=== PATIENT | male | born 1930 | race Caucasian/White ===

== ENCOUNTER 2016-10-18 09:19 | Day surgery (SDC) | payer MEDICARE, OTHER ==
[~2016-10-18] VITALS: Ht 172.7 cm; Wt 66.0 kg
[2016-10-18 10:11] VITALS: BP 229/77; PULSE 49; RESP 18; TEMP 97.7; O2SAT 100
[2016-10-18 10:20] LABS: AUTOMATED NEUTROPHIL # 4.4 TH/MM3 (1.8-7.7); BASOPHIL % 0.4 % (0.0-2.0); EOSINOPHIL # 0.3 TH/MM3 (0-0.4); EOSINOPHIL % 3.6 % (0.0-4.0); HEMATOCRIT 41.6 % (39.0-51.0); HEMO FLAGS DIFF FINAL; LYMPH % 25.4 % (9.0-44.0); LYMPHOCYTE # 1.8 TH/MM3 (1.0-4.8); MEAN CORPUSCULAR HEMOGLOBIN 30.5 PG (27.0-34.0); MEAN CORPUSCULAR HGB CONC 33.1 % (32.0-36.0); MONO % 9.5 % (0.0-8.0); NEUT % 61.1 % (16.0-70.0); PLATELET COUNT 257 TH/MM3 (150-450); RED BLOOD COUNT 4.52 MIL/MM3 (4.50-5.90); RED CELL DISTRIBUTION WIDTH 17.4 % (11.6-17.2); WHITE BLOOD COUNT 7.2 TH/MM3 (4.0-11.0)
[2016-10-18] MEDS ORDERED: HYDR-3516 PO (10:29)
[2016-10-18] MEDS ORDERED: LABE200T2 PO (10:29)
[2016-10-18] MEDS ORDERED: CLON.1 PO (10:29)
[2016-10-18] MEDS ORDERED: MAGN400T2 PO (10:29)
[2016-10-18] MEDS ORDERED: SENO8.6T5 PO (10:29)
[2016-10-18] MEDS ORDERED: CELE20TA PO (10:29)
[2016-10-18] MEDS ORDERED: LEVO.05 PO (10:29)
[2016-10-18] MEDS ORDERED: ASPI81TA11 PO (10:29)
[2016-10-18 10:48] LABS: POTASSIUM 4.2 MEQ/L (3.5-5.1)
[2016-10-18] MEDS ORDERED: HEPARIN SODIUM - IV 10,000 UNITS/10 ML VIAL ONE (11:39)
[2016-10-18] MEDS ORDERED: MIDAZOLAM HCL 5 MG/ML VIAL (1 ML) ONE (11:39)
[2016-10-18] MEDS ORDERED: hydrALAZINE HCL 20 MG/ML VIAL ONE ×2 (12:36→13:17)
[2016-10-18] MEDS ORDERED: PROTAMINE SULFATE 50 MG/5 ML VIAL ONE (12:59)
[2016-10-18] MEDS ORDERED: IOHEXOL IV ONE (13:50)
[2016-10-18] MEDS ORDERED: CLOPIDOGREL 300 MG TAB ONE (14:03)
[2016-10-18] MEDS ORDERED: cloNIDine HCL 0.1 MG TAB PO ONE (14:45)
[2016-10-18] MEDS ORDERED: ACETAMINOPHEN/HYDROcodone 325 MG/5 MG TAB PO PRN (14:45)
--- NOTE | 2016-10-18 19:52 | MA ---
cc: CHANDLER HIGUERA DO DATE 10/18/2016 PREOPERATIVE DIAGNOSIS Critical limb ischemia, nonhealing wound left lower extremity. POSTOPERATIVE DIAGNOSIS Critical limb ischemia, nonhealing wound left lower extremity. PROCEDURES PERFORMED 1. Aortogram. 2. Pelvic arteriogram. 3. Selective left lower extremity arteriogram. 4. Balloon angioplasty and stenting of left external iliac artery with a 5 mm x 8 centimeter Medtronic balloon and subsequently a 7 mm x 80 mm EverFlex stent, balloon angioplasty with a 7 mm x 8 cm Cook balloon. SURGEON Chandler Higuera DO IV FLUIDS 1 liter. ESTIMATED BLOOD LOSS Minimal. URINE OUTPUT Not calculated. COMPLICATIONS None. DISPOSITION To PACU. PROCEDURE The patient's bilateral groins were prepped and draped in a sterile fashion after being under moderate sedation. I got access to the left common femoral artery using duplex ultrasound as the patient did not have a palpable femoral pulse. I exchanged for a 21-gauge needle for a 4-Cook Islander micropuncture catheter and then advanced to a 5-[place] Islander sheath ___ retrograde towards the umbilicus. I advanced a stiff angled Glidewire across the external iliac artery chronic total occlusion, made sure that was intraluminal. I then shot an AP aortogram and pelvic oblique arteriograms with an Omni flush catheter. My findings were that the abdominal aorta and bilateral renal arteries were patent. The right common iliac artery was patent. The right external iliac artery is occluded and the right hypogastric artery was patent. The left common femoral was patent. The left hypogastric artery had a high-grade stenosis at its origin. The left external iliac artery is occluded along its length from just after the takeoff to the groin at the femoral head. The patient's left common femoral and profunda femoral artery widely patent. The left superficial femoral artery was occluded. There was reconstitution of the above-knee popliteal artery. It was difficult to see blood flow below the level of the knees as the patient is moving with artifact and low flow due to his __ chronic total occlusion, although it appeared that he had an anterior tibial artery at least to the mid calf as a single-vessel runoff. It also did appear that the below-knee popliteal artery was patent. I did not exchange for a 6-Cook Islander sheath in the left groin. I performed balloon angioplasty with a 5 mm x 8 cm balloon from just from where the external iliac artery commenced till it transitioned into the common femoral. After I performed balloon angioplasty there was still residual stenoses proximally and distally. 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 It was a 7-mm x 80-cm long, afterwards I performed balloon angioplasty with a 7-mm x 80-cm long balloon. It should be noted there was good flow through the external iliac artery now with a palpable pulse. At the end of procedure I exchanged for a 6-[place] Islander Angio-Seal device. The patient tolerated the procedure well and a dressing placed in the left groin. 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 The patient also has a chronic total occlusion of the left superficial femoral artery with reconstitution of the above-knee popliteal artery and then single-vessel runoff through the anterior tibial artery. I was able to see proximally but distally due to a lack of perfusion and motion artifact it was difficult to see where it terminated. DO DENIS Abreu/DUNG /1:18 PM /7:27 PM
[2016-10-18] MEDS ORDERED: LABETALOL HCL 200 MG TAB PO SCH (21:00)
[2016-10-19] MEDS ORDERED: LEVOTHYROXINE SODIUM 50 MCG TAB PO SCH (06:00)
[2016-10-19] MEDS ORDERED: MAGNESIUM OXIDE 400 MG TAB PO SCH (09:00)
[2016-10-19] MEDS ORDERED: ASPIRIN EC 81 MG TABEC PO SCH (09:00)
[2016-10-19] MEDS ORDERED: SENNOSIDES 8.6 MG TAB PO SCH (09:00)
[2016-10-19] MEDS ORDERED: CITALOPRAM HYDROBROMIDE 20 MG TAB PO SCH (09:00)
== END 2016-10-18 17:03 ==
LOC: HDOC 09:19 → HDIC 09:21 → HDOC 17:03
PROVIDERS: ATTEND Surgery
DX: I70.202 Unspecified atherosclerosis of native arteries of extremities, left leg (principal); I10 Essential (primary) hypertension; E78.5 Hyperlipidemia, unspecified; Z79.01 Long term (current) use of anticoagulants
CPT/HCPCS: 37221; 75716; 80048; 85002; 85025; C1725; C1769; G0269; J0360; J1644; J2250; J2720; J3010

== ENCOUNTER 2017-12-09 16:15 | Observation (INO) ==
--- NOTE | 2017-12-09 18:05 | ED ---
HPI General Chief Complaint: Psychiatric Symptoms Stated Complaint: Blayne Zurita Time Seen by Provider: 12/10/17 11:35 Source: patient Mode of arrival: wheelchair Limitations: other (dementia) History of Present Illness HPI Narrative: Patient is an 87-year-old male who is a resident of [facility] [place]. He was sent here under a Martinez act for wanting to harm himself. He is awake he is alert he knows he is in the hospital he is unsure which town he is in. When asked him if he is suicidal he states that he is "ready to leave this fleshly body and the good Lord will do it when he is ready". He denies that he has any plan, however the Martinez act states that he is choking himself and wrapping pillow cases around his throat. He has a history of dementia, hyperlipidemia, depression, peripheral vascular disease. As mentioned previously patient is awake alert somewhat confused but he is appropriate at this time. MD complaint: Reports suicidal ideation and feels depressed Onset (ago): unknown Duration: other (unknown) Relieving factors: none Exacerbating factors: none Context: Denies recent alcohol abuse, recent drug abuse, not taking psychiatric medications, new medication(s) and significant life stressor Associated psychiatric symptoms: Reports depression, suicidal ideation and visual hallucinations Treatments prior to arrival: Reports none Details of plan: No plan. Related Data Home Medications Medication Instructions Recorded Confirmed amlodipine 10 mg PO DAILY 12/09/17 12/09/17 atorvastatin [Lipitor] 40 mg PO HS 12/09/17 12/09/17 citalopram 40 mg PO DAILY 12/09/17 12/09/17 clonidine HCl 0.1 mg PO BID 12/09/17 12/09/17 clopidogrel 75 mg PO DAILY 12/09/17 12/09/17 hydralazine 25 mg PO TID 12/09/17 12/09/17 losartan 50 mg PO DAILY 12/09/17 12/09/17 multivitamin,qb-inrc-hfguddlh 1 tab PO DAILY 12/09/17 12/09/17 [Thera-M] sodium chloride 1 gm PO DAILY 12/09/17 12/09/17 Allergies Allergy/AdvReac Type Severity Reaction Status Date / Time No Known Allergies Allergy Uncoded 10/18/16 09:55 Review of Systems ROS: all other systems reviewed are negative PMFSH Medical History Medical History Dementia (Acute) Depression (Acute) Edema (Acute) HTN (hypertension) (Acute) Hyperlipidemia (Acute) Hyponatremia (Acute) PVD (peripheral vascular disease) (Acute) Social History Social History Smoking Status: Cognitive impairment How Often Do You Have a Drink Containing Alcohol: Never Exam Narrative Exam Narrative: GENERAL: Pt awake, alert, pleasantly confused. Following commands appropriately. SKIN: Focused skin assessment warm/dry. HEAD: Atraumatic. Normocephalic. EYES: Pupils equal and round. No scleral icterus. No injection or drainage. ENT: No nasal bleeding or discharge. Mucous membranes pink and moist. NECK: Trachea midline. No JVD. CARDIOVASCULAR: Regular rate and rhythm. No murmur appreciated. RESPIRATORY: No accessory muscle use. Clear to auscultation. Breath sounds equal bilaterally. GASTROINTESTINAL: Abdomen soft, non-tender, nondistended. Hepatic and splenic margins not palpable. MUSCULOSKELETAL: No obvious deformities. No clubbing. No cyanosis. No edema. NEUROLOGICAL: Awake and alert. No obvious cranial nerve deficits. Motor grossly within normal limits. Normal speech. PSYCHIATRIC: Appropriate mood and affect; insight and judgment normal. Course Initial Documented Vital Signs Temperature 98.3 F 12/09/17 16:35 Pulse Rate 64 12/09/17 16:35 Respiratory Rate 20 12/09/17 16:35 Blood Pressure 155/73 H 12/09/17 16:35 Pulse Oximetry 99 12/09/17 16:35 Last Documented Vital Signs Temperature 98.3 F 12/09/17 16:35 Pulse Rate 65 12/10/17 06:14 Respiratory Rate 16 12/10/17 06:14 Blood Pressure 156/68 H 12/10/17 06:14 Pulse Oximetry 96 12/10/17 06:14 Sign Out Sign Out Data: Patient Sign Out occurred on 12/09/17 at 19:23. Patient's care was discussed, and care was transferred from AYAH Pascual to Gerardo Hopkins MD. Sign Out Comment: Signed out to Dr. Hopkins at 1900 Last updated by Grace Licona ARNP at 12/09/17 19:02 Medical Decision Making HIRA Attestation HIRA supervised visit: Yes Attestation: I, Dr. Mclean, have reviewed the advance practice practitioner's documentation and am in agreement, met with the patient face to face, made the diagnosis, and the medical decision making was done by me. *My assessment and Findings: Patient seen and examined by me briefly, sleeping soundly, on arousal patient states he had no complaints. Labs reviewed by me and show no concerning abnormality. He is medically cleared for psychiatric evaluation under Martinez act. MDM Narrative Medical decision making narrative: Patient is a 87-year-old male who is a resident of [facility]. His physician is Dr. Reynaga. He was placed under a Martinez Act by a PA (I believe for Dr. Reynaga?) For making statements that he wanted to and was wrapping pillowcases around his neck and also some choking. When I evaluated him he is awake he is alert to where he is he is unsure of the year and town. When asked patient if he was suicidal he said no but he is ready to leave this "fleshly body and I will go when the good Lord is ready". Unfortunately Martinez act already in status so we will do psychiatric medical clearance protocol and have psychiatry evaluate him in the morning. Son-in-law now at bedside states that the patient has been stating that he wants to be absent in the body and present with the Lord for many many years. Statements such as this are not new for him however he [facility] a [facility] as of [facility] and there used to this behavior so a Martinez act was initiated. Son-in-law also stating that patient does have dementia and is confused, but has been consistent in statements such as those mentioned above. Medical Screen Exam Complete: Yes Emergency Medical Condition: Yes Lab Data Result diagrams: 12/09/17 16:39 12/09/17 16:39 Lab Results 12/09/17 12/09/17 Range/Units 16:39 16:39 WBC 8.3 (4.0-11.0) th/mm3 RBC 3.38 L (4.50-5.90) mil/mm3 Hgb 11.4 L (13.0-17.0) gm/dL Hct 32.0 L (39.0-51.0) % MCV 94.5 (80.0-100.0) fL MCH 33.8 (27.0-34.0) pg MCHC 35.7 (32.0-36.0) % RDW 12.9 (11.6-17.2) % Plt Count 321 (150-450) th/mm3 MPV 6.6 L (7.0-11.0) fL Neut % (Auto) 67.7 (16.0-70.0) % Lymph % (Auto) 20.1 (9.0-44.0) % Lyman % (Auto) 10.5 H (0.0-8.0) % Eos % (Auto) 1.4 (0.0-4.0) % Baso % (Auto) 0.3 (0.0-2.0) % Neut # (Auto) 5.6 (1.8-7.7) th/mm3 Lymph # (Auto) 1.7 (1.0-4.8) th/mm3 Lyman # (Auto) 0.9 (0.0-0.9) th/mm3 Eos # (Auto) 0.1 (0.0-0.4) th/mm3 Baso # (Auto) 0.0 (0.0-0.2) th/mm3 WBC Differential . Differential Comment Auto diff final Sodium 135 L (136-145) meq/L Potassium 4.3 (3.5-5.1) meq/L Chloride 100 (98-107) meq/L Carbon Dioxide 27.9 (21.0-32.0) meq/L Anion Gap 7 (5-15) meq/L BUN 13 (7-18) mg/dL Creatinine 0.94 (0.60-1.30) mg/dL Estimated GFR 76 L (>89) mL/min Random Glucose 110 H (74-106) mg/dL Calcium 8.8 (8.5-10.1) mg/dL Magnesium 1.9 (1.5-2.5) mg/dL Total Bilirubin 0.2 (0.2-1.0) mg/dL AST 18 (15-37) U/L ALT 40 (12-78) U/L Alkaline Phosphatase 106 (45-117) U/L Total Protein 6.2 L (6.4-8.2) g/dL Albumin 3.1 L (3.4-5.0) g/dL TSH 5.950 H (0.358-3.740) uIU/mL Serum Alcohol Less than 3 (0-5) mg/dL Discharge Plan Discharge Disposition Patient Disposition: 01 Discharge Home Discharge Condition Condition: Stable Discharge Order Discharge Orders: Discharge Order (Routine); Ordered 12/10/17 Ordered By: Shawna Diop Discharge Details Diagnosis: Dementia Physicians Team ED Provider: Gerardo Hopkins Primary Care Provider: UNKNOWN, Rxs /Orders / Referrals /Forms Prescriptions: No Action losartan 50 mg Tablet 50 mg PO DAILY RF: 0 atorvastatin [Lipitor] 40 mg Tablet 40 mg PO HS RF: 0 clonidine HCl 0.1 mg Tablet 0.1 mg PO BID RF: 0 citalopram 40 mg Tablet 40 mg PO DAILY RF: 0 sodium chloride 1 gram Tablet 1 gm PO DAILY RF: 0 hydralazine 25 mg Tablet 25 mg PO TID RF: 0 clopidogrel 75 mg Tablet 75 mg PO DAILY RF: 0 amlodipine 10 mg Tablet 10 mg PO DAILY RF: 0 multivitamin,me-gxdx-vhkwhhto [Thera-M] Tablet 1 tab PO DAILY RF: 0 Referrals: Primary Care Provider [Outside] - Call for Appointment Psychiatrist [Outside] - 1 Day Discharge Instructions Patient Printed Instructions: Dementia (ED) Additional Instructions: Contract safety to your self and others Follow-up with psychiatry Follow-up with primary care provider Follow-up with Ayad Sotelo Return to the emergency department immediately with worsening of symptoms Status ED Status: Ready for Discharge Addendum entered and electronically signed by AYAH Thapa 12/10/17 12:43: 12/10/2017 1243: AYAH Thomas has evaluated the patient, lifted the Martinez act and cleared the patient for discharge. Patient will be provided community resource packet to [facility] for follow-up. Patient was medically cleared by alternate provider prior to psych screening. Patient has been evaluated by psychiatry and and is now cleared for discharge.
[2017-12-09 18:51] LABS: Baso % (Auto) 0.3 % (0.0-2.0); Eos # (Auto) 0.1 th/mm3 (0.0-0.4); Eos % (Auto) 1.4 % (0.0-4.0); Hemoglobin 11.4 gm/dL (13.0-17.0); Lymph # (Auto) 1.7 th/mm3 (1.0-4.8); Lymph % (Auto) 20.1 % (9.0-44.0); Mean Corpuscular HGB Conc 35.7 % (32.0-36.0); Mean Corpuscular Hemoglobin 33.8 pg (27.0-34.0); Mean Corpuscular Volume 94.5 fL (80.0-100.0); Mean Platelet Volume 6.6 fL (7.0-11.0); Mono # (Auto) 0.9 th/mm3 (0.0-0.9); Mono % (Auto) 10.5 % (0.0-8.0); Neut # (Auto) 5.6 th/mm3 (1.8-7.7); Neut % (Auto) 67.7 % (16.0-70.0); Platelet Count 321 th/mm3 (150-450); Red Blood Count 3.38 mil/mm3 (4.50-5.90); Red Cell Distribution Width 12.9 % (11.6-17.2); White Blood Count 8.3 th/mm3 (4.0-11.0)
[2017-12-09 19:07] LABS: Albumin 3.1 g/dL (3.4-5.0); Anion Gap 7 meq/L (5-15); Aspartate Aminotransferase 18 U/L (15-37); Blood Urea Nitrogen 13 mg/dL (7-18); Calcium 8.8 mg/dL (8.5-10.1); Carbon Dioxide 27.9 meq/L (21.0-32.0); Chloride 100 meq/L (98-107); Glomerular Filtration Rate 76 mL/min (>89); Glucose,Random 110 mg/dL (74-106); Magnesium 1.9 mg/dL (1.5-2.5); Potassium 4.3 meq/L (3.5-5.1); Sodium 135 meq/L (136-145)
[2017-12-09 19:08] LABS: Alanine Aminotransferase 40 U/L (12-78)
[2017-12-09 19:18] LABS: Alkaline Phosphatase 106 U/L (45-117); Total Protein 6.2 g/dL (6.4-8.2)
--- NOTE | 2017-12-10 11:55 | ED ---
HPI - Psych - General Source: patient, RN notes reviewed Mode of arrival: wheelchair Limitations: other (cognitive impairmetn due to dementia) - History of Present Illness MD complaint: suicidal ideation Onset (ago): hour(s) Duration: resolved prior to arrival, other (unknown) History of same: No Relieving factors: none Exacerbating factors: none Context: other (recent placemen/dementia) Treatments prior to arrival: none - General Chief Complaint: Psychiatric Symptoms Stated Complaint: Pysch Eval Time Seen by Provider: 12/10/17 11:35 - History of Present Illness HPI Narrative: History of Present Illness HPI Narrative: Patient is an 87-year-old male who is a resident of [facility] which he has been at for less than one week. He was sent here under a Martinez act initiated by PA at the facility for wanting to harm himself and the report alleges that he was putting his hands around his neck as well as placing pillow cases over his face. No previous contact with [facility] psychiatry. The patient has been under observation and has presented no behavioral concerns and no suicidality. Patient is seen. Nurses notes reviewed. Patient is calm, oriented to person only, has not demonstrated any suicidality or no aggressive behaviors. He wants to go home. He is demented. Has no recollection of his actions. He denies he wants to harm himself in any way. States " Only when the good Lord says so". The patient is a poor historian due to his dementia. He has presented no criteria for inpatient psychiatric treatment. (Martha Chowdhury) - Related Data Home Medications Medication Instructions Recorded Confirmed amlodipine 10 mg PO DAILY 12/09/17 12/09/17 atorvastatin [Lipitor] 40 mg PO HS 12/09/17 12/09/17 citalopram 40 mg PO DAILY 12/09/17 12/09/17 clonidine HCl 0.1 mg PO BID 12/09/17 12/09/17 clopidogrel 75 mg PO DAILY 12/09/17 12/09/17 hydralazine 25 mg PO TID 12/09/17 12/09/17 losartan 50 mg PO DAILY 12/09/17 12/09/17 multivitamin,ko-qcks-ssbhrmmx 1 tab PO DAILY 12/09/17 12/09/17 [Thera-M] sodium chloride 1 gm PO DAILY 12/09/17 12/09/17 Allergies Allergy/AdvReac Type Severity Reaction Status Date / Time No Known Allergies Allergy Uncoded 10/18/16 09:55 [facility] - History History Provided By: Medical Record - Medical History Medical History: Medical History (Last Updated 12/09/17 @ 18:44 by Nathanael Rivera RN) Dementia Depression Edema HTN (hypertension) Hyperlipidemia Hyponatremia PVD (peripheral vascular disease) - Social History I have reviewed the patient's Social History: No - Tobacco History Smoking Status: Cognitive impairment - Alcohol History How Often Do You Have a Drink Containing Alcohol: Never - Immunization History Tetanus Immunization: Unsure Psychiatric History - Psychiatric History Unable to obtain from Patient.None listed in facility paperwork. (Martha Chowdhury) - Legal History Unable to obtain (Martha Chowdhury) - Family Psychiatric History Unable to obtain. (Martha Chowdhury) Physical Exam - General Limitations: other (dementia) Mental Status Examination Consciousness: Alert Orientation: Person Motor Activity: Other (in bed) Speech: Unremarkable Language: Adequate Fund of Knowledge: Inadequate Attention and Concentration: Inadequate Memory: Impaired Mood: Appropriate Affect: Appropriate Thought Content: Appropriate Hallucination Type: None Delusion Type: None Suicidal Ideation: No Suicidal Plan: No Suicidal Intention: No Homicidal Ideation: No Homicidal Plan: No Homicidal Intention: No Insight: Poor Judgment: Poor Initial Documented Vital Signs Temperature 98.3 F 12/09/17 16:35 Pulse Rate 64 12/09/17 16:35 Respiratory Rate 20 12/09/17 16:35 Blood Pressure 155/73 H 12/09/17 16:35 Pulse Oximetry 99 12/09/17 16:35 Last Documented Vital Signs Temperature 98.3 F 12/09/17 16:35 Pulse Rate 65 12/10/17 06:14 Respiratory Rate 16 12/10/17 06:14 Blood Pressure 156/68 H 12/10/17 06:14 Pulse Oximetry 96 12/10/17 06:14 MDM - Psych - Diagnosis (1) Dementia Status: Acute - Lab Data Result diagrams: 12/09/17 16:39 12/09/17 16:39 - [facility] Narrative Medical decision making narrative: Patient does not meet criteria to remain under the BA as he exhibits no evidence of unstable mental illness. He has no recollection of the actions alleged in the BA due to his dementia. The patient resides in a rehab center which is a controlled environment. I recommend environmental changes such as removing objects including linen to provide a safe environment as well as increase in staff observation and monitoring. I find no criteria to keep him here under the BA. It has been lifted. Case discussed with AYAH Becker (Martha Chowdhury) - Lab Data Lab Results 12/09/17 12/09/17 Range/Units 16:39 16:39 WBC 8.3 (4.0-11.0) th/mm3 RBC 3.38 L (4.50-5.90) mil/mm3 Hgb 11.4 L (13.0-17.0) gm/dL Hct 32.0 L (39.0-51.0) % MCV 94.5 (80.0-100.0) fL MCH 33.8 (27.0-34.0) pg MCHC 35.7 (32.0-36.0) % RDW 12.9 (11.6-17.2) % Plt Count 321 (150-450) th/mm3 MPV 6.6 L (7.0-11.0) fL Neut % (Auto) 67.7 (16.0-70.0) % Lymph % (Auto) 20.1 (9.0-44.0) % Dupage % (Auto) 10.5 H (0.0-8.0) % Eos % (Auto) 1.4 (0.0-4.0) % Baso % (Auto) 0.3 (0.0-2.0) % Neut # (Auto) 5.6 (1.8-7.7) th/mm3 Lymph # (Auto) 1.7 (1.0-4.8) th/mm3 Dupage # (Auto) 0.9 (0.0-0.9) th/mm3 Eos # (Auto) 0.1 (0.0-0.4) th/mm3 Baso # (Auto) 0.0 (0.0-0.2) th/mm3 WBC Differential . Differential Comment Auto diff final Sodium 135 L (136-145) meq/L Potassium 4.3 (3.5-5.1) meq/L Chloride 100 (98-107) meq/L Carbon Dioxide 27.9 (21.0-32.0) meq/L Anion Gap 7 (5-15) meq/L BUN 13 (7-18) mg/dL Creatinine 0.94 (0.60-1.30) mg/dL Estimated GFR 76 L (>89) mL/min Random Glucose 110 H (74-106) mg/dL Calcium 8.8 (8.5-10.1) mg/dL Magnesium 1.9 (1.5-2.5) mg/dL Total Bilirubin 0.2 (0.2-1.0) mg/dL AST 18 (15-37) U/L ALT 40 (12-78) U/L Alkaline Phosphatase 106 (45-117) U/L Total Protein 6.2 L (6.4-8.2) g/dL Albumin 3.1 L (3.4-5.0) g/dL TSH 5.950 H (0.358-3.740) uIU/mL Serum Alcohol Less than 3 (0-5) mg/dL
[2017-12-10] MEDS ORDERED: Bisacodyl 10 MG Supp RECTAL PRN (16:47)
[2017-12-10] MEDS ORDERED: Acetaminophen 325 MG Tablet PO PRN (16:47)
--- NOTE | 2017-12-10 17:54 | P.HPIM ---
History of Present Illness Service: [facility] Primary Care Physician: UNKNOWN Chief Complaint: ALTERED MENTAL STATUS/DEMENTIA History of Present Illness: Patient is a 87-year-old male who is a resident of [facility]. He was sent here initially under a Martinez act for wanting to harm himself. He is now awake and alert. He notices in the hospital he is unsure which town he is in. When asked if he had a plan and is suicidal. He states "I am ready to leave this fleshy body and the good Lord will do it when he is ready". Denies any has any plan however Martinez act previously states that he is choking himself and wrapping pillowcases around his throat. Has a history of dementia, as well as hyperlipidemia and depression and peripheral vascular disease. He has history of hyperlipidemia and hyponatremia and peripheral vascular occlusive disease as well as chronic cognitive impairment Patient denies any alcohol abuse or any recent medications other than his normal medications denies any new medications denies any new life stressors. He has depression. Denies any true suicidal ideation and visual hallucinations. His Martinez act is already been lifted by psychiatry Home medications include amlodipine, Lipitor, citalopram, clonidine, clopidogrel , hydralazine, losartan, multivitamin sodium chloride tabs Review of Systems All other systems reviewed negative except as stated in HPI PMFSH - History History Provided By: Medical Record - Medical History Medical History: Medical History (Last Reviewed 12/10/17 @ 17:53 by Liam Stewart DO) Dementia Depression Edema HTN (hypertension) Hyperlipidemia Hyponatremia PVD (peripheral vascular disease) - Family History Family History: Family History (Last Updated 12/10/17 @ 17:53 by Liam Stewart DO) Other Family history of hypertension - Tobacco History Smoking Status: Cognitive impairment - Alcohol History How Often Do You Have a Drink Containing Alcohol: Never - Immunization History Tetanus Immunization: Unsure Medications and Allergies Active Medications: Active Medications Acetaminophen (Tylenol) 650 mg PO Q4H PRN PRN Reason: Temp > 100.4 Al Hydroxide/Mg Hydroxide (Milk Of Magnesia Liq) 30 ml PO Q12H PRN PRN Reason: Mild Constipation Amlodipine Besylate (Norvasc) 10 mg PO DAILY [facility] Atorvastatin Calcium (Lipitor) 40 mg PO HS [facility] Bisacodyl (Dulcolax Supp) 10 mg RECTAL DAILY PRN PRN Reason: SEVERE CONSITIPATION Citalopram Hydrobromide (Celexa) 40 mg PO DAILY [facility] Last Admin: 12/10/17 17:00 Dose: 40 mg Clonidine HCl (Catapres) 0.1 mg PO Q6H PRN PRN Reason: HYPERTENSION Clopidogrel Bisulfate (Plavix) 75 mg PO DAILY [facility] Last Admin: 12/10/17 17:00 Dose: 75 mg Heparin Sodium (Porcine) (Heparin Inj) 5,000 units SQ Q12H [facility] Lactulose (Lactulose Liq) 30 ml PO DAILY PRN PRN Reason: SEVERE CONSITIPATION Levothyroxine Sodium (Synthroid) 25 mcg PO DAILY@0600 [facility] Non-Formulary Medication (Multivitamin,[id number] [Thera-M]) 1 tab PO DAILY [facility] Ondansetron HCl (Zofran Inj) 4 mg IV.PUSH Q6H PRN PRN Reason: NAUSEA OR VOMITING Senna/Docusate Sodium (Viki-Colace) 1 tab PO BID [facility] Sennosides (Senokot) 17.2 mg PO Q12H PRN PRN Reason: Moderate Constipation Allergies Allergy/AdvReac Type Severity Reaction Status Date / Time No Known Allergies Allergy Uncoded 10/18/16 09:55 Home Medications Medication Instructions Recorded Confirmed Type amlodipine 10 mg PO DAILY 12/09/17 12/10/17 History atorvastatin [Lipitor] 40 mg PO HS 12/09/17 12/10/17 History citalopram 40 mg PO DAILY 12/09/17 12/10/17 History clonidine HCl 0.1 mg PO BID 12/09/17 12/10/17 History clopidogrel 75 mg PO DAILY 12/09/17 12/10/17 History hydralazine 25 mg PO TID PRN 12/09/17 12/10/17 History losartan 50 mg PO DAILY 12/09/17 12/10/17 History multivitamin,[id number] 1 tab PO DAILY 12/09/17 12/10/17 History [Thera-M] sodium chloride 1 gm PO DAILY 12/09/17 12/10/17 History hydrochlorothiazide 25 mg PO DAILY 12/10/17 12/10/17 History Exam Vital signs: Vital Signs 12/09/17 18:38 12/10/17 00:38 12/10/17 06:14 Pulse Rate 57 L 54 L 65 Respiratory Rate 20 18 16 Blood Pressure 169/71 H 145/65 H 156/68 H Pulse Oximetry 97 97 96 12/10/17 17:03 Pulse Rate 72 Respiratory Rate 18 Blood Pressure 162/75 H Pulse Oximetry 97 Intake & Output 12/09/17 12/10/17 12/10/17 18:59 06:59 18:59 Weight 52.4 kg Narrative: GENERAL: Awake alert but quite confused and disoriented-can follow commands when he feels like it SKIN: Warm and dry. HEAD: Normocephalic. EYES: No scleral icterus. No injection or drainage. NECK: Supple, trachea midline. No JVD or lymphadenopathy. CARDIOVASCULAR: Regular rate and rhythm without murmurs, gallops, or rubs. S1- S2 no S3 or S4 RESPIRATORY: Breath sounds equal bilaterally. No accessory muscle use. GASTROINTESTINAL: Abdomen soft, non-tender, nondistended. MUSCULOSKELETAL: No cyanosis, or edema. BACK: Nontender without obvious deformity. No CVA tenderness. Results - Labs CBC & Chem 7: 12/09/17 16:39 12/09/17 16:39 Labs: Short CBC 12/09/17 Range/Units 16:39 WBC 8.3 (4.0-11.0) th/mm3 Hgb 11.4 L (13.0-17.0) gm/dL Hct 32.0 L (39.0-51.0) % Plt Count 321 (150-450) th/mm3 BMP 12/09/17 16:39 Sodium 135 L Potassium 4.3 Chloride 100 Carbon Dioxide 27.9 BUN 13 Creatinine 0.94 Calcium 8.8 Liver Function 12/09/17 Range/Units 16:39 Total Bilirubin 0.2 (0.2-1.0) mg/dL AST 18 (15-37) U/L ALT 40 (12-78) U/L Alkaline Phosphatase 106 (45-117) U/L Albumin 3.1 L (3.4-5.0) g/dL Caprini VTE Risk Assessment Caprini VTE Risk Assessment: No/Low Risk (score <= 1) Caprini Risk Assessment Model: Point Value = 1 Point Value = 2 Point Value = 3 Point Value = 5 Age 41-60 Minor surgery BMI > 25 kg/m2 Swollen legs Varicose veins or History of unexplained or recurrent spontaneous Oral contraceptives or hormone replacement Sepsis (< 1 month) Serious lung disease, including pneumonia (< 1 month) Abnormal pulmonary function Acute myocardial infarction Congestive heart failure (< 1 month) History of inflammatory bowel disease Medical patient at bed rest Age 61-74 Arthroscopic surgery Major open surgery (> 45 min) Laparoscopic surgery (> 45 min) Malignancy Confined to bed (> 72 hours) Immobilizing plaster cast Central venous access Age >= 75 History of VTE Family history of VTE Factor V Leiden Prothrombin [id number] Lupus anticoagulant Anticardiolipin antibodies Elevated serum homocysteine Heparin-induced thrombocytopenia Other congenital or acquired thrombophilia Stroke (< 1 month) Elective arthroplasty Hip, pelvis, or leg fracture Acute spinal cord injury (< 1 month) Prophylaxis Regimen: Total Risk Factor Score Risk Level Prophylaxis Regimen 0-1 Low Early ambulation 2 Moderate Order ONE of the following: *Sequential Compression Device (SCD) *Heparin 5000 units SQ BID 3-4 Higher Order ONE of the following medications: *Heparin 5000 units SQ TID *Enoxaparin/Lovenox 40 mg SQ daily (WT < 150 kg, CrCl > 30 mL/min) *Enoxaparin/Lovenox 30 mg SQ daily (WT < 150 kg, CrCl > 10-29 mL/min) *Enoxaparin/Lovenox 30 mg SQ BID (WT < 150 kg, CrCl > 30 mL/min) AND/OR *Sequential Compression Device (SCD) 5 or more Highest Order ONE of the following medications: *Heparin 5000 units SQ TID (Preferred with Epidurals) *Enoxaparin/Lovenox 40 mg SQ daily (WT < 150 kg, CrCl > 30 mL/min) *Enoxaparin/Lovenox 30 mg SQ daily (WT < 150 kg, CrCl > 10-29 mL/min) *Enoxaparin/Lovenox 30 mg SQ BID (WT < 150 kg, CrCl > 30 mL/min) AND *Sequential Compression Device (SCD) Assessment and Plan - Plan Patient is currently bedded outpatient status with no medical reasons due to difficulty for placement. The nursing home facility he was at refuses to take him back. These are all social reasons why the patient is Chronic dementia Chronic hyperlipidemia Chronic hypertension Chronic depression/anxiety Chronic peripheral vascular disease We will get labs to make sure everything is stable We will have as needed medications available for nausea, pain, vomiting, sleep, and constipation. Martinez act has been lifted already Patient has been cleared by psychiatry Await safe placement SNF versus [facility] Will defer to case management for help with placement Patient is not being treated medically at this time await safe placement Code Status: Full code Discussed Condition With: RN and patient and emergency room physician Discharge Planning: To SNF or [facility]
[2017-12-10] MEDS: Heparin - SQ 10,000 UNITS/ML Vial SQ SCH (18:19)
[2017-12-10 18:37] LABS: Amorphous Sediment,Urine Rare /hpf; Bacteria,Urine Rare /hpf; Bilirubin,Urine Negative (Negative); Clarity,Urine Cloudy (Clear); Color,Urine Yellow (Yellw/Straw); Glucose,Urine (UA) Negative (Negative); Leukocyte Esterase,Urine Negative (Negative); Nitrite,Urine Negative (Negative); Specific Gravity,Urine 1.009 (1.002-1.035); Squamous Epithelial Cell,Urine <1 /hpf (0-5)
[2017-12-10 18:50] LABS: Amphetamine Screen,Urine Neg (Neg); Barbiturate Screen,Urine Neg (Neg); Cannabinoid Screen,Urine Neg (Neg); Cocaine Screen,Urine Neg (Neg)
[2017-12-10 19:05] LABS: Opiate Screen,Urine Neg (Neg)
[2017-12-10] MEDS: Senna/Docusate Sodium 8.6/50 MG Tablet PO SCH (20:14)
[2017-12-11] MEDS: Heparin - SQ 10,000 UNITS/ML Vial SQ SCH ×2 (05:09→18:03)
[2017-12-11 05:54] LABS: Baso % (Auto) 0.3 % (0.0-2.0); Eos # (Auto) 0.1 th/mm3 (0.0-0.4); Eos % (Auto) 1.8 % (0.0-4.0); Hematocrit 33.9 % (39.0-51.0); Lymph # (Auto) 1.8 th/mm3 (1.0-4.8); Lymph % (Auto) 24.2 % (9.0-44.0); Mean Corpuscular HGB Conc 35.3 % (32.0-36.0); Mean Corpuscular Hemoglobin 33.3 pg (27.0-34.0); Mean Corpuscular Volume 94.2 fL (80.0-100.0); Mean Platelet Volume 6.2 fL (7.0-11.0); Mono # (Auto) 0.6 th/mm3 (0.0-0.9); Mono % (Auto) 8.1 % (0.0-8.0); Neut # (Auto) 4.8 th/mm3 (1.8-7.7); Neut % (Auto) 65.6 % (16.0-70.0); Platelet Count 282 th/mm3 (150-450); Red Cell Distribution Width 12.9 % (11.6-17.2); White Blood Count 7.4 th/mm3 (4.0-11.0)
[2017-12-11 06:21] LABS: Albumin 3.1 g/dL (3.4-5.0); Anion Gap 7 meq/L (5-15); Aspartate Aminotransferase 15 U/L (15-37); Blood Urea Nitrogen 10 mg/dL (7-18); Calcium 9.2 mg/dL (8.5-10.1); Carbon Dioxide 26.6 meq/L (21.0-32.0); Chloride 100 meq/L (98-107); Glomerular Filtration Rate 86 mL/min (>89); Glucose,Random 82 mg/dL (74-106); Potassium 4.2 meq/L (3.5-5.1); Sodium 134 meq/L (136-145)
[2017-12-11 06:23] LABS: Alanine Aminotransferase 37 U/L (12-78)
[2017-12-11 06:26] LABS: Alkaline Phosphatase 88 U/L (45-117); Total Protein 6.2 g/dL (6.4-8.2)
[2017-12-11] MEDS: Senna/Docusate Sodium 8.6/50 MG Tablet PO SCH ×2 (10:04→20:54)
[2017-12-11] MEDS: amLODIPine 10 MG Tablet PO SCH (10:05)
[2017-12-11] MEDS: Multivitamin/Minerals Therapeutic Tablet PO SCH (10:05)
[2017-12-12] MEDS: Heparin - SQ 10,000 UNITS/ML Vial SQ SCH ×2 (05:55→17:56)
[2017-12-12] MEDS: Multivitamin/Minerals Therapeutic Tablet PO SCH (10:28)
[2017-12-12] MEDS: amLODIPine 10 MG Tablet PO SCH (10:28)
[2017-12-12] MEDS: Senna/Docusate Sodium 8.6/50 MG Tablet PO SCH ×2 (10:28→23:59)
[2017-12-13] MEDS: Heparin - SQ 10,000 UNITS/ML Vial SQ SCH ×2 (05:17→19:24)
[2017-12-13] MEDS: Multivitamin/Minerals Therapeutic Tablet PO SCH (11:57)
[2017-12-13] MEDS: amLODIPine 10 MG Tablet PO SCH (11:57)
[2017-12-13] MEDS: Senna/Docusate Sodium 8.6/50 MG Tablet PO SCH ×2 (11:57→22:27)
--- NOTE | 2017-12-13 12:37 | P.PN ---
Subjective Interval history: Follow up on bedded outpatient. Patient seen and examined. Patient with worsening depression. Stating thoughts of wanting to hurt himself. Denies any chest pain or dyspnea. Denies any fever or chills. Reports fair appetite. States he has no "flavor buds". Physical Exam Vital signs: Vital Signs 12/12/17 12:29 12/12/17 15:51 12/12/17 19:53 Temperature 98.2 F 98.1 F 98.1 F Pulse Rate 58 L 58 L 61 Respiratory Rate 18 18 16 Blood Pressure 166/74 H 181/72 H 173/75 H Pulse Oximetry 96 96 97 12/13/17 00:00 12/13/17 04:00 12/13/17 08:00 Temperature 98.2 F 98.4 F 98.5 F Pulse Rate 55 L 58 L 56 L Respiratory Rate 16 14 12 Blood Pressure 170/72 H 174/76 H 176/72 H Pulse Oximetry 95 96 94 L 12/13/17 11:23 Temperature 98.8 F Pulse Rate 69 Respiratory Rate 12 Blood Pressure 187/73 H Pulse Oximetry 98 Intake & Output 12/12/17 12/13/17 12/13/17 18:59 06:59 18:59 Output Total 200 / 200 Balance -200 / -200 Output: Urine 200 / 200 Other: # Voids 4 # Incontinent Voids 1 Narrative: GENERAL: WDWN elderly male patient, INAD. Sitting up in bedside chair eating lunch. Sitter is at the bedside. SKIN: Warm and dry. HEENT: Normocephalic. No scleral icterus. No injection or drainage. No nasal drainage. MMM. NECK: Trachea midline. Airway patient. CARDIOVASCULAR: Regular rate and rhythm without murmurs, gallops, or rubs. S1- S2 no S3 or S4 RESPIRATORY: Breath sounds equal bilaterally. No accessory muscle use. GASTROINTESTINAL: Abdomen soft, non-tender, nondistended. MUSCULOSKELETAL: No cyanosis, or edema. No obvious deformities NEUROLOGIC: Awake and alert. No obvious cranial nerve defects. Able to move all extremities spontaneously. Normal speech. PSYCHIATRIC: Depressed mood. Results - Labs CBC & Chem 7: 12/11/17 05:33 12/11/17 05:33 Assessment and Plan - Plan Patient is currently bedded outpatient status with no medical reasons due to difficulty for placement. [facility] 12/13 Patient admitted to [facility] in error. Patient has been bedded outpatient. As such, he has not been followed daily by [facility]. However, patient has since developed acute medical issues warranting practitioner involvement. Last night and today he has made suicidal comments stating he wants to hurt himself and the "angels of " will come and get him. He also scored very high on the depression screening per RN. We will consult Psychiatry for evaluation of worsening depression and suicidal ideation/comments. Additionally, will request Psych to officially address Martinez Act status as no official documentation can be located that the Martinez Act was lifted. Appreciate Psychiatry's assistance. Chronic dementia Worsening depression Suicidal ideation previously under Martinez Act but lifted by AYAH Bliss -Consult Psychiatry, appreciate assistance -continue on Celexa Hypertension, not well controlled -continue on Norvasc 10mg daily -start on Cozaar 25mg daily -Clonidine prn with parameters -monitor BP and adjust treatment accordingly Hyperlipidemia -continue on lipitor Peripheral vascular disease, chronic -continue on Plavix Hypothyroidism TSH 5.950 -Continue on Synthroid 25mcg daily We will have as needed medications available for nausea, pain, vomiting, sleep, and constipation. Code Status: Full Discussed Condition With: patient, nursing staff
--- NOTE | 2017-12-13 21:35 | P.CONPSY ---
Provisional Diagnosis Admission Date: December 10, 2017 16:48 History of Present Illness Service: psychiatry Consult date: 12/13/17 Reason for Consult: Depression Primary Care Provider: UNKNOWN Chief Complaint: ALTERED MENTAL STATUS/DEMENTIA History of Present Illness: Patient is an 87-year-old male with a history of dementia and likely depressive disorder. Patient was initially in the ER with a Martinez act which was subsequently cleared by the nurse practitioner 3 days ago. Patient has since remained in the ER for another 3 days for an unclear reason. Psychiatry has been reconsulted for ongoing concerns of suicidal ideation. His sitter noted perseveration, ideation about not wanting to be alive and wanted to be with the Lord. Patient is oriented x1, is quite confused and is a poor historian. Affect is quite blunted and anxious. Patient admits to feeling worthless and hopeless and wishes he was with the Lord and no longer in this life. His social situation is unclear and it is unclear if he is able to meet his daily needs or has a place to go. Patient is also hard of hearing confounding the interview. Past psych: Dementia Past medical: See chart Past Famhx: Unknown Past Social: Patient gives a convoluted story that he has 6 sons, denies substance use Patient is an 87-year-old male who is a resident of [facility] which he has been at for less than one week. He was sent here under a Martinez act initiated by VICENTA at the facility for wanting to harm himself and the report alleges that he was putting his hands around his neck as well as placing pillow cases over his face. No previous contact with [facility] psychiatry. [facility] - History History Provided By: Patient, Medical Record - Medical History Medical History: Medical History (Last Reviewed 12/13/17 @ 21:38 by Constantin Stevens DO) Dementia Depression Edema HTN (hypertension) Hyperlipidemia Hyponatremia PVD (peripheral vascular disease) - Family History Family History: Family History (Last Reviewed 12/13/17 @ 21:38 by Constantin Stevens DO) Other Family history of hypertension - Tobacco History Smoking Status: Unknown if ever smoked - Alcohol History How Often Do You Have a Drink Containing Alcohol: Never - Substance Use History Substance History: No History of Abuse - Immunization History Tetanus Immunization: Unsure Medications and Allergies Active Medications: Active Medications Acetaminophen (Tylenol) 650 mg PO Q4H PRN PRN Reason: Temp > 100.4 Al Hydroxide/Mg Hydroxide (Milk Of Magnesia Liq) 30 ml PO Q12H PRN PRN Reason: Mild Constipation Amlodipine Besylate (Norvasc) 10 mg PO DAILY [facility] Last Admin: 12/13/17 11:57 Dose: 10 mg Atorvastatin Calcium (Lipitor) 40 mg PO HS [facility] Last Admin: 12/12/17 23:59 Dose: 40 mg Bisacodyl (Dulcolax Supp) 10 mg RECTAL DAILY PRN PRN Reason: SEVERE CONSITIPATION Citalopram Hydrobromide (Celexa) 40 mg PO DAILY [facility] Last Admin: 12/13/17 11:57 Dose: 40 mg Clonidine HCl (Catapres) 0.1 mg PO Q6H PRN PRN Reason: HYPERTENSION Last Admin: 12/11/17 18:49 Dose: 0.1 mg Clopidogrel Bisulfate (Plavix) 75 mg PO DAILY [facility] Last Admin: 12/13/17 11:57 Dose: 75 mg Heparin Sodium (Porcine) (Heparin Inj) 5,000 units SQ Q12H [facility] Last Admin: 12/13/17 19:24 Dose: 5,000 units Lactulose (Lactulose Liq) 30 ml PO DAILY PRN PRN Reason: SEVERE CONSITIPATION Levothyroxine Sodium (Synthroid) 25 mcg PO DAILY@0600 [facility] Last Admin: 12/13/17 05:17 Dose: 25 mcg Losartan Potassium (Cozaar) 25 mg PO DAILY [facility] Last Admin: 12/13/17 18:32 Dose: 25 mg Multivitamins/Minerals (Theragran-M) 1 tab PO DAILY [facility] Last Admin: 12/13/17 11:57 Dose: 1 tab Ondansetron HCl (Zofran Inj) 4 mg IV.PUSH Q6H PRN PRN Reason: NAUSEA OR VOMITING Senna/Docusate Sodium (Viki-Colace) 1 tab PO BID [facility] Last Admin: 12/13/17 11:57 Dose: 1 tab Sennosides (Senokot) 17.2 mg PO Q12H PRN PRN Reason: Moderate Constipation Allergies Allergy/AdvReac Type Severity Reaction Status Date / Time No Known Allergies Allergy Uncoded 10/18/16 09:55 Home Medications Medication Instructions Recorded Confirmed Type amlodipine 10 mg PO DAILY 12/09/17 12/10/17 History atorvastatin [Lipitor] 40 mg PO HS 12/09/17 12/10/17 History citalopram 40 mg PO DAILY 12/09/17 12/10/17 History clonidine HCl 0.1 mg PO BID 12/09/17 12/10/17 History clopidogrel 75 mg PO DAILY 12/09/17 12/10/17 History hydralazine 25 mg PO TID PRN 12/09/17 12/10/17 History losartan 50 mg PO DAILY 12/09/17 12/10/17 History multivitamin,[id number]-lebn-[id number] 1 tab PO DAILY 12/09/17 12/10/17 History [Thera-M] sodium chloride 1 gm PO DAILY 12/09/17 12/10/17 History hydrochlorothiazide 25 mg PO DAILY 12/10/17 12/10/17 History Exam Vital signs: Vital Signs 12/13/17 00:00 12/13/17 04:00 12/13/17 08:00 Temperature 98.2 F 98.4 F 98.5 F Pulse Rate 55 L 58 L 56 L Respiratory Rate 16 14 12 Blood Pressure 170/72 H 174/76 H 176/72 H Pulse Oximetry 95 96 94 L 12/13/17 11:23 12/13/17 15:32 12/13/17 20:00 Temperature 98.8 F 98.7 F 99.0 F Pulse Rate 69 67 63 Respiratory Rate 12 16 18 Blood Pressure 187/73 H 160/63 H 152/66 H Pulse Oximetry 98 94 L 94 L Intake & Output 12/13/17 12/13/17 12/14/17 06:59 18:59 06:59 Intake Total 360 / 360 Output Total 200 / 200 200 / 200 Balance -200 / -200 160 / 160 Intake: Oral 360 / 360 Output: Urine 200 / 200 200 / 200 Other: # Voids 4 # Incontinent Voids 1 1 Mental Status Examination Consciousness: Alert Orientation: Person Motor Activity: Other (in bed) Speech: Unremarkable Language: Adequate Fund of Knowledge: Inadequate Attention and Concentration: Inadequate Memory: Impaired Mood: Sad Affect: Blunt, Anxious Thought Process & Associations: Disorganized Thought Content: Preoccupations Hallucination Type: None Delusion Type: None Suicidal Ideation: Yes Suicidal Plan: No Suicidal Intention: No Homicidal Ideation: No Homicidal Plan: No Homicidal Intention: No Insight: Poor Judgment: Poor Assessment and Plan - Assessment (1) Major depressive disorder, recurrent severe without psychotic features Code(s): F33.2 - Major depressive disorder, recurrent severe without psychotic features Status: Acute (2) Dementia Code(s): F03.90 - Unspecified dementia without behavioral disturbance Status: Acute - Plan Plan: Estimated LOS: [] days Given continued suicidal ideation, concerns for self-care, his behavior at the [facility] before admission and need for treatment for his depressive disorder I recommend admission to the psychiatric unit. The ER doctor can complete another Martinez act or he can be admitted voluntarily for now where he will be petitioned on the psychiatric unit Justification for Continued Inpatient Stay: Patient would decompensate in a less restrictive setting (2) Dementia Qualifiers: Dementia type: unspecified type Dementia behavioral disturbance: with behavioral disturbance Qualified Code(s): F03.91 - Unspecified dementia with behavioral disturbance
[2017-12-14] MEDS: Heparin - SQ 10,000 UNITS/ML Vial SQ SCH ×2 (05:58→17:23)
--- NOTE | 2017-12-14 07:11 | P.PN ---
Subjective Interval history: Follow up on patient with depression, suicidal ideation. Patient seen and examined. Patient says he feels ok. He voices no concerns or complaints. DW nursing staff, no adverse events noted overnight. Physical Exam Vital signs: Vital Signs 12/13/17 08:00 12/13/17 11:23 12/13/17 15:32 Temperature 98.5 F 98.8 F 98.7 F Pulse Rate 56 L 69 67 Respiratory Rate 12 12 16 Blood Pressure 176/72 H 187/73 H 160/63 H Pulse Oximetry 94 L 98 94 L 12/13/17 20:00 12/14/17 00:00 12/14/17 04:00 Temperature 99.0 F 98.6 F 98.1 F Pulse Rate 63 62 57 L Respiratory Rate 18 17 17 Blood Pressure 152/66 H 125/81 149/74 H Pulse Oximetry 94 L 92 L 94 L Intake & Output 12/13/17 12/14/17 12/14/17 18:59 06:59 18:59 Intake Total 360 / 360 Output Total 200 / 200 Balance 160 / 160 Weight 65.4 kg Intake: Oral 360 / 360 Output: Urine 200 / 200 Other: # Voids 4 # Incontinent Voids 1 2 Narrative: GENERAL: WDWN elderly male patient, INAD. Sitting up in bed watching TV, awake and alert. Sitter is at the bedside. SKIN: Warm and dry. HEENT: Normocephalic. No scleral icterus. No injection or drainage. No nasal drainage. MMM. NECK: Trachea midline. Airway patient. CARDIOVASCULAR: Regular rate and rhythm without murmurs, gallops, or rubs. S1- S2 no S3 or S4 RESPIRATORY: Breath sounds equal bilaterally. No accessory muscle use. GASTROINTESTINAL: Abdomen soft, non-tender, nondistended. MUSCULOSKELETAL: No cyanosis, or edema. No obvious deformities NEUROLOGIC: Awake and alert. No obvious cranial nerve defects. Able to move all extremities spontaneously. Normal speech. PSYCHIATRIC: Depressed mood. Results - Labs CBC & Chem 7: 12/11/17 05:33 12/11/17 05:33 Assessment and Plan - Plan Patient is currently bedded outpatient status with no medical reasons due to difficulty for placement. The senior living facility he was at refuses to take him back. 12/13 Patient admitted to [facility] in error. Patient has been bedded outpatient. As such, he has not been followed daily by [facility]. However, patient has since developed acute medical issues warranting practitioner involvement. Last night and today he has made suicidal comments stating he wants to hurt himself and the "angels of " will come and get him. He also scored very high on the depression screening per RN. We will consult Psychiatry for evaluation of worsening depression and suicidal ideation/comments. Additionally, will request Psych to officially address Martinez Act status as no official documentation can be located that the Martinez Act was lifted. Appreciate Psychiatry's assistance. 12/14 Evaluated by psychiatry and accepted for admission to inpatient psychiatry. We will place discharge orders and hopefully patient will transfer to psychiatric unit today. Chronic dementia Worsening depression Suicidal ideation previously under Martinez Act but lifted by AYAH Bliss -Consult Psychiatry, appreciate assistance. Evaluated by psych and accepted to inpatient psychiatry. -continue on Celexa Hypertension, not well controlled 12/14, BP improved, now 123/60 -continue on Norvasc 10mg daily and Cozaar 25mg daily -Clonidine prn with parameters -monitor BP and adjust treatment accordingly Hyperlipidemia -continue on lipitor Peripheral vascular disease, chronic -continue on Plavix Hypothyroidism TSH 5.950 -Continue on Synthroid 25mcg daily We will have as needed medications available for nausea, pain, vomiting, sleep, and constipation. Code Status: Full Discussed Condition With: patient, nursing staff, Dr. Galeana Discharge Planning: Discharge to inpatient psychiatry when bed available.
--- NOTE | 2017-12-14 07:12 | P.PN ---
Physical Exam Vital signs: Vital Signs 12/13/17 08:00 12/13/17 11:23 12/13/17 15:32 Temperature 98.5 F 98.8 F 98.7 F Pulse Rate 56 L 69 67 Respiratory Rate 12 12 16 Blood Pressure 176/72 H 187/73 H 160/63 H Pulse Oximetry 94 L 98 94 L 12/13/17 20:00 12/14/17 00:00 12/14/17 04:00 Temperature 99.0 F 98.6 F 98.1 F Pulse Rate 63 62 57 L Respiratory Rate 18 17 17 Blood Pressure 152/66 H 125/81 149/74 H Pulse Oximetry 94 L 92 L 94 L Intake & Output 12/13/17 12/14/17 12/14/17 18:59 06:59 18:59 Intake Total 360 / 360 Output Total 200 / 200 Balance 160 / 160 Weight 65.4 kg Intake: Oral 360 / 360 Output: Urine 200 / 200 Other: # Voids 4 # Incontinent Voids 1 2 Results - Labs CBC & Chem 7: 12/11/17 05:33 12/11/17 05:33 Assessment and Plan - Plan Patient is currently bedded outpatient status with no medical reasons due to difficulty for placement. [facility] him back. 12/13 Patient admitted to [facility]BS in error. Patient has been bedded outpatient. As such, he has not been followed daily by [facility]. However, patient has since developed acute medical issues warranting practitioner involvement. Last night and today he has made suicidal comments stating he wants to hurt himself and the "angels of " will come and get him. He also scored very high on the depression screening per RN. We will consult Psychiatry for evaluation of worsening depression and suicidal ideation/comments. Additionally, will request Psych to officially address Martinez Act status as no official documentation can be located that the Martinez Act was lifted. Appreciate Psychiatry's assistance. Chronic dementia Worsening depression Suicidal ideation previously under Martinez Act but lifted by AYAH Bliss -Consult Psychiatry, appreciate assistance -continue on Celexa Hypertension, not well controlled -continue on Norvasc 10mg daily -start on Cozaar 25mg daily -Clonidine prn with parameters -monitor BP and adjust treatment accordingly Hyperlipidemia -continue on lipitor Peripheral vascular disease, chronic -continue on Plavix Hypothyroidism TSH 5.950 -Continue on Synthroid 25mcg daily We will have as needed medications available for nausea, pain, vomiting, sleep, and constipation.
[2017-12-14] MEDS: amLODIPine 10 MG Tablet PO SCH (09:26)
[2017-12-14] MEDS: Multivitamin/Minerals Therapeutic Tablet PO SCH (09:26)
[2017-12-14] MEDS: Senna/Docusate Sodium 8.6/50 MG Tablet PO SCH ×2 (09:26→21:53)
--- NOTE | 2017-12-14 12:39 | P.DS ---
Date of admission: 12/10/17 16:48 Primary care physician: UNKNOWN Attending physician on discharge: Dipti Galeana Anticipated date of discharge: 12/14/17 Brief History from admission: Patient is a 87-year-old male who is a resident of [facility]. He was sent here initially under a Martinez act for wanting to harm himself. He is now awake and alert. He notices in the hospital he is unsure which town he is in. When asked if he had a plan and is suicidal. He states "I am ready to leave this fleshy body and the good Lord will do it when he is ready". Denies any has any plan however Martinez act previously states that he is choking himself and wrapping pillowcases around his throat. Has a history of dementia, as well as hyperlipidemia and depression and peripheral vascular disease. He has history of hyperlipidemia and hyponatremia and peripheral vascular occlusive disease as well as chronic cognitive impairment Patient denies any alcohol abuse or any recent medications other than his normal medications denies any new medications denies any new life stressors. He has depression. Denies any true suicidal ideation and visual hallucinations. His Martinez act is already been lifted by psychiatry Home medications include amlodipine, Lipitor, citalopram, clonidine, clopidogrel , hydralazine, losartan, multivitamin sodium chloride tabs Patient update on day of discharge: Follow up on patient with depression, suicidal ideation. Patient seen and examined. Patient says he feels ok. He voices no concerns or complaints. [facility] nursing staff, no adverse events noted overnight. DS: Diagnosis - Discharge Diagnosis (1) Major depressive disorder, recurrent severe without psychotic features Status: Acute (2) Suicidal ideation Status: Acute (3) Dementia Status: Acute (4) Hypertension Status: Acute DS: Summary Hospital Course: 87-year-old male who is a resident of [facility] which he has been at for less than one week. He was sent here under a Martinez act initiated by VICENTA at the facility for wanting to harm himself and the report alleges that he was putting his hands around his neck as well as placing pillow cases over his face. Patient was evaluated by psychiatry and felt patient did not meet criteria to remain under BA. Patient was admitted as bedded outpatient. Patient developed worsening depression and suicidal ideation making statements that he wanted to harm himself. He was seen in consultation by Psychiatry who accepted patient for inpatient psychiatry admission. - Time Spent with Patient Total time spent providing and/or coordinating discharge services: Less than 30 minutes - Quality: VTE Deep Vein Thrombosis/Pulmonary Embolism Present on Admission: No Exam Vital signs: Vital Signs 12/13/17 15:32 12/13/17 20:00 12/14/17 00:00 Temperature 98.7 F 99.0 F 98.6 F Pulse Rate 67 63 62 Respiratory Rate 16 18 17 Blood Pressure 160/63 H 152/66 H 125/81 Pulse Oximetry 94 L 94 L 92 L 12/14/17 04:00 12/14/17 08:00 12/14/17 11:23 Temperature 98.1 F 98.5 F 98.0 F Pulse Rate 57 L 60 56 L Respiratory Rate 17 16 20 Blood Pressure 149/74 H 196/85 H 123/60 Pulse Oximetry 94 L 96 97 Intake & Output 12/13/17 12/14/17 12/14/17 18:59 06:59 18:59 Intake Total 360 / 360 Output Total 200 / 200 Balance 160 / 160 Weight 65.4 kg Intake: Oral 360 / 360 Output: Urine 200 / 200 Other: # Voids 4 # Incontinent Voids 1 2 Narrative: GENERAL: WDWN elderly male patient, INAD. Sitting up in bed watching TV, awake and alert. Sitter is at the bedside. SKIN: Warm and dry. HEENT: Normocephalic. No scleral icterus. No injection or drainage. No nasal drainage. MMM. NECK: Trachea midline. Airway patient. CARDIOVASCULAR: Regular rate and rhythm without murmurs, gallops, or rubs. S1- S2 no S3 or S4 RESPIRATORY: Breath sounds equal bilaterally. No accessory muscle use. GASTROINTESTINAL: Abdomen soft, non-tender, nondistended. MUSCULOSKELETAL: No cyanosis, or edema. No obvious deformities NEUROLOGIC: Awake and alert. No obvious cranial nerve defects. Able to move all extremities spontaneously. Normal speech. PSYCHIATRIC: Depressed mood. Results Procedures completed during hospitalization: None Discharge Plan - Discharge Disposition Patient Disposition: 67 Disc To [facility] Facility - Discharge Condition Condition: Stable - Discharge Order Discharge Orders: Discharge Order (Routine); Ordered 12/10/17 Ordered By: Shawna Diop - Discharge Details Anticipated Discharge Date: 12/14/17 Discharge Comment: Discharge pending psychiatric bed available - Physicians Team Primary Care Provider: UNKNOWN, Attending Provider: Dipti Galeana Other Providers: [facility] ; Beth,Andi ; [facility] ; [facility] ; Constantin Stevens,
[2017-12-15] MEDS: Heparin - SQ 10,000 UNITS/ML Vial SQ SCH ×2 (06:35→18:00)
--- NOTE | 2017-12-15 07:30 | P.PN ---
Subjective Interval history: Follow up on patient with depression, suicidal ideation. Patient seen and examined. Patient states he slept well. He is eager to be moved over to the inpatient psychiatric area as he states that he has a family member that works there. He denies any fever or chills. He denies any chest pain or shortness of breath. He denies any nausea, vomiting or abdominal pain. Discussed with nursing staff, no adverse events noted overnight. Physical Exam Vital signs: Vital Signs 12/14/17 08:00 12/14/17 11:23 12/14/17 15:19 Temperature 98.5 F 98.0 F 97.5 F L Pulse Rate 60 56 L 59 L Respiratory Rate 16 20 20 Blood Pressure 196/85 H 123/60 139/64 Pulse Oximetry 96 97 96 12/14/17 20:00 12/15/17 00:00 12/15/17 04:00 Temperature 97.8 F 98.1 F 97.8 F Pulse Rate 55 L 58 L 57 L Respiratory Rate 17 16 16 Blood Pressure 147/65 H 162/71 H 163/69 H Pulse Oximetry 94 L 95 95 Intake & Output 12/14/17 12/15/17 12/15/17 18:59 06:59 18:59 Intake Total 720 / 720 Output Total 300 / 300 Balance 420 / 420 Weight 65.6 kg Intake: Oral 720 / 720 Output: Urine 300 / 300 Other: # Voids 2 Narrative: GENERAL: WDWN elderly male patient. Sitting up in bed. Awake and alert. Not in any distress. Sitter at bedside. SKIN: Warm and dry. HEENT: Normocephalic. No scleral icterus. No injection or drainage. No nasal drainage. MMM. NECK: Trachea midline. Airway patient. CARDIOVASCULAR: Regular rate and rhythm without murmurs, gallops, or rubs. S1- S2 no S3 or S4 RESPIRATORY: Breath sounds equal bilaterally. No accessory muscle use. GASTROINTESTINAL: Abdomen soft, non-tender, nondistended. MUSCULOSKELETAL: No cyanosis, or edema. No obvious deformities NEUROLOGIC: Awake and alert. No obvious cranial nerve defects. Able to move all extremities spontaneously. Normal speech. PSYCHIATRIC: Depressed mood. Results - Labs CBC & Chem 7: 12/11/17 05:33 12/11/17 05:33 - Procedures None Assessment and Plan - Assessment (1) Major depressive disorder, recurrent severe without psychotic features Code(s): F33.2 - Major depressive disorder, recurrent severe without psychotic features Status: Acute (2) Suicidal ideation Code(s): R45.851 - Suicidal ideations Status: Acute (3) Dementia Code(s): F03.90 - Unspecified dementia without behavioral disturbance Status: Acute (4) Hypertension Code(s): I10 - Essential (primary) hypertension Status: Acute - Plan Patient is currently bedded outpatient status with no medical reasons due to difficulty for placement. The intermediate facility he was at refuses to take him back. 12/13 Patient admitted to OBS in error. Patient has been bedded outpatient. As such, he has not been followed daily by [facility]. However, patient has since developed acute medical issues warranting practitioner involvement. Last night and today he has made suicidal comments stating he wants to hurt himself and the "angels of " will come and get him. He also scored very high on the depression screening per RN. We will consult Psychiatry for evaluation of worsening depression and suicidal ideation/comments. Additionally, will request Psych to officially address Martinez Act status as no official documentation can be located that the Martinez Act was lifted. Appreciate Psychiatry's assistance. 12/14 Evaluated by psychiatry and accepted for admission to inpatient psychiatry. We will place discharge orders and hopefully patient will transfer to psychiatric unit today. 12/15 patient discharged yesterday, awaiting bed placement inpatient psychiatry. Patient voices no complaints or concerns. No interval deterioration. He is stable. Vital signs stable except for elevated BP. Increase Cozaar dose to 50mg daily (this was patients home dose). Chronic dementia Worsening depression Suicidal ideation previously under Martinez Act but lifted by AYAH Bliss -Consult Psychiatry, appreciate assistance. Evaluated by psych and accepted to inpatient psychiatry. -continue on Celexa Hypertension, not well controlled -continue on Norvasc 10mg daily and increase Cozaar to 50mg daily -Clonidine prn with parameters -monitor BP and adjust treatment accordingly Hyperlipidemia -continue on lipitor Peripheral vascular disease, chronic -continue on Plavix Hypothyroidism TSH 5.950 -Continue on Synthroid 25mcg daily We will have as needed medications available for nausea, pain, vomiting, sleep, and constipation. Code Status: Full Discussed Condition With: patient, nursing staff, Dr. Galeana Discharge Planning: Discharge to inpatient psychiatry when bed available. (3) Dementia Qualifiers: Dementia type: unspecified type Dementia behavioral disturbance: with behavioral disturbance Qualified Code(s): F03.91 - Unspecified dementia with behavioral disturbance
[2017-12-15] MEDS: Senna/Docusate Sodium 8.6/50 MG Tablet PO SCH ×2 (10:04→20:49)
[2017-12-15] MEDS: amLODIPine 10 MG Tablet PO SCH (10:04)
[2017-12-15] MEDS: Multivitamin/Minerals Therapeutic Tablet PO SCH (10:04)
[2017-12-16] MEDS: Heparin - SQ 10,000 UNITS/ML Vial SQ SCH ×2 (05:58→18:23)
--- NOTE | 2017-12-16 07:42 | P.PN ---
Subjective Interval history: Follow up on patient with depression, suicidal ideation. Patient seen and examined. Patients only complaint is that his "spirit is still in his body and he doesn't want it to be". He does not voice any acute medical complaints or concerns. Discussed with nursing staff, no adverse events noted overnight. Physical Exam Vital signs: Vital Signs 12/15/17 11:31 12/15/17 15:52 12/15/17 19:38 Temperature 98.1 F 98.7 F 98.6 F Pulse Rate 67 62 69 Respiratory Rate 16 16 18 Blood Pressure 189/78 H 159/72 H 188/80 H Pulse Oximetry 96 96 92 L 12/16/17 00:00 12/16/17 04:00 Temperature 98.3 F 98.1 F Pulse Rate 56 L 56 L Respiratory Rate 18 18 Blood Pressure 137/65 143/64 H Pulse Oximetry 94 L 93 L Intake & Output 12/15/17 12/16/17 12/16/17 18:59 06:59 18:59 Intake Total 960 / 960 Output Total 900 / 900 Balance 60 / 60 Weight 66.6 kg Intake: Oral 960 / 960 Output: Urine 900 / 900 Other: # Voids 7 Narrative: GENERAL: WDWN elderly male patient, INAD. Sitting up in bed. Awake and alert. Sitter at bedside. SKIN: Warm and dry. HEENT: Normocephalic. No scleral icterus. No injection or drainage. No nasal drainage. MMM. NECK: Trachea midline. Airway patient. CARDIOVASCULAR: Regular rate and rhythm without murmurs, gallops, or rubs. S1- S2 no S3 or S4 RESPIRATORY: Breath sounds equal bilaterally. No accessory muscle use. GASTROINTESTINAL: Abdomen soft, non-tender, nondistended. MUSCULOSKELETAL: No cyanosis, or edema. No obvious deformities NEUROLOGIC: Awake and alert. No obvious cranial nerve defects. Able to move all extremities spontaneously. Normal speech. PSYCHIATRIC: Depressed mood. Results - Labs CBC & Chem 7: 12/11/17 05:33 12/11/17 05:33 - Procedures None Assessment and Plan - Assessment (1) Major depressive disorder, recurrent severe without psychotic features Code(s): F33.2 - Major depressive disorder, recurrent severe without psychotic features Status: Acute (2) Suicidal ideation Code(s): R45.851 - Suicidal ideations Status: Acute (3) Dementia Code(s): F03.90 - Unspecified dementia without behavioral disturbance Status: Acute (4) Hypertension Code(s): I10 - Essential (primary) hypertension Status: Acute - Plan Patient is currently bedded outpatient status with no medical reasons due to difficulty for placement. The halfway facility he was at refuses to take him back. 12/13 Patient admitted to OBS in error. Patient has been bedded outpatient. As such, he has not been followed daily by [facility]. However, patient has since developed acute medical issues warranting practitioner involvement. Last night and today he has made suicidal comments stating he wants to hurt himself and the "angels of " will come and get him. He also scored very high on the depression screening per RN. We will consult Psychiatry for evaluation of worsening depression and suicidal ideation/comments. Additionally, will request Psych to officially address Martinez Act status as no official documentation can be located that the Martinez Act was lifted. Appreciate Psychiatry's assistance. 12/14 Evaluated by psychiatry and accepted for admission to inpatient psychiatry. We will place discharge orders and hopefully patient will transfer to psychiatric unit today. 12/15 patient discharged yesterday, awaiting bed placement inpatient psychiatry. Patient voices no complaints or concerns. No interval deterioration. He is stable. Vital signs stable except for elevated BP. Increase Cozaar dose to 50mg daily (this was patients home dose). 12/16 Awaiting bed availability in inpatient psychiatry. Patient continues to voice depressive comments. Discussed with nursing staff, no adverse events noted overnight. VSS. Chronic dementia Worsening depression Suicidal ideation previously under Martinez Act but lifted by AYAH Bliss -Consult Psychiatry, appreciate assistance. Evaluated by psych and accepted to inpatient psychiatry. -continue on Celexa Hypertension, not well controlled -continue on Norvasc 10mg daily and increase Cozaar to 50mg daily -Clonidine prn with parameters -monitor BP and adjust treatment accordingly Hyperlipidemia -continue on lipitor Peripheral vascular disease, chronic -continue on Plavix Hypothyroidism TSH 5.950 -Continue on Synthroid 25mcg daily We will have as needed medications available for nausea, pain, vomiting, sleep, and constipation. Code Status: Full Discussed Condition With: patient, nursing staff, Dr. Galeana Discharge Planning: Discharge to inpatient psychiatry when bed available. (3) Dementia Qualifiers: Dementia type: unspecified type Dementia behavioral disturbance: with behavioral disturbance Qualified Code(s): F03.91 - Unspecified dementia with behavioral disturbance
[2017-12-16] MEDS: Multivitamin/Minerals Therapeutic Tablet PO SCH (09:58)
[2017-12-16] MEDS: Senna/Docusate Sodium 8.6/50 MG Tablet PO SCH ×2 (09:58→20:53)
[2017-12-16] MEDS: amLODIPine 10 MG Tablet PO SCH (09:59)
[2017-12-17] MEDS: Heparin - SQ 10,000 UNITS/ML Vial SQ SCH (07:09)
[2017-12-17] MEDS: Multivitamin/Minerals Therapeutic Tablet PO SCH (09:33)
[2017-12-17] MEDS: amLODIPine 10 MG Tablet PO SCH (09:33)
[2017-12-17] MEDS: Senna/Docusate Sodium 8.6/50 MG Tablet PO SCH (09:34)
--- NOTE | 2017-12-17 09:55 | P.PN ---
Subjective Interval history: Follow up on patient with depression, suicidal ideation. The patient is seen with sitter at bedside. He has no specific medical complaints, denies any fevers /chills, headache, lightheadedness, chest pain, cough, shortness of breath, or abdominal/urinary complaints. He states its "by an act of God" that he is here. Awaiting bed in inpatient psychiatry unit. Physical Exam Vital signs: Vital Signs 12/16/17 11:40 12/16/17 15:47 12/16/17 19:42 Temperature 98.3 F 98.5 F 98.3 F Pulse Rate 56 L 61 65 Respiratory Rate 16 16 18 Blood Pressure 151/69 H 139/62 157/70 H Pulse Oximetry 95 93 L 93 L 12/16/17 23:00 12/17/17 04:00 12/17/17 08:00 Temperature 98.5 F 98.1 F 98.6 F Pulse Rate 60 62 54 L Respiratory Rate 17 18 16 Blood Pressure 146/65 H 169/75 H 177/77 H Pulse Oximetry 92 L 92 L 93 L Intake & Output 12/16/17 12/17/17 12/17/17 18:59 06:59 18:59 Intake Total 600 / 600 240 / 240 Output Total 650 / 650 Balance 600 / 600 -410 / -410 Weight 66.769 kg Intake: Oral 600 / 600 240 / 240 Output: Urine 650 / 650 Narrative: GENERAL: Well-nourished, well-developed elderly male patient in [facility]. SKIN: Warm and dry. No rash. HEENT: Normocephalic. Atraumatic. Pupils equal and round. Mucous membranes pink and moist. CARDIOVASCULAR: Regular rate and rhythm. No murmur appreciated. RESPIRATORY: No accessory muscle use. Clear to auscultation. Breath sounds equal bilaterally. GASTROINTESTINAL: Abdomen soft, non-tender, nondistended. Normoactive bowel sounds x4. MUSCULOSKELETAL: No obvious deformities. Extremities without clubbing, cyanosis , or edema. NEUROLOGICAL: Awake and alert. No obvious cranial nerve deficits. Motor grossly within normal limits. Moving all extremities spontaneously. Normal speech. PSYCHIATRIC: Depressed mood. Results - Labs CBC & Chem 7: 12/11/17 05:33 12/11/17 05:33 - Procedures None Assessment and Plan - Assessment (1) Major depressive disorder, recurrent severe without psychotic features Code(s): F33.2 - Major depressive disorder, recurrent severe without psychotic features Status: Acute (2) Suicidal ideation Code(s): R45.851 - Suicidal ideations Status: Acute (3) Dementia Code(s): F03.90 - Unspecified dementia without behavioral disturbance Status: Acute (4) Hypertension Code(s): I10 - Essential (primary) hypertension Status: Acute - Plan Patient is currently bedded outpatient status with no medical reasons due to difficulty for placement. The sn[facility] facility he was at refuses to take him back. 12/13 Patient admitted to OBS in error. Patient has been bedded outpatient. As such, he has not been followed daily by [facility]. However, patient has since developed acute medical issues warranting practitioner involvement. Last night and today he has made suicidal comments stating he wants to hurt himself and the "angels of " will come and get him. He also scored very high on the depression screening per RN. We will consult Psychiatry for evaluation of worsening depression and suicidal ideation/comments. Additionally, will request Psych to officially address Martinez Act status as no official documentation can be located that the Martinez Act was lifted. Appreciate Psychiatry's assistance. 12/14 Evaluated by psychiatry and accepted for admission to inpatient psychiatry. We will place discharge orders and hopefully patient will transfer to psychiatric unit today. 12/15 patient discharged yesterday, awaiting bed placement inpatient psychiatry. Patient voices no complaints or concerns. No interval deterioration. He is stable. Vital signs stable except for elevated BP. Increase Cozaar dose to 50mg daily (this was patients home dose). 12/16 Awaiting bed availability in inpatient psychiatry. Patient continues to voice depressive comments. Discussed with nursing staff, no adverse events noted overnight. VSS. 12/17 Patient continues to report depression and suicidal ideations. No acute medical complaints. Awaiting bed in inpatient psychiatry. Chronic dementia Worsening depression Suicidal ideation previously under Martinez Act but lifted by AYAH Bliss -Consult Psychiatry, appreciate assistance. Evaluated by psych and accepted to inpatient psychiatry. -continue on Celexa Hypertension, not well controlled -continue on Norvasc 10mg daily and increase Cozaar to 50mg daily -Clonidine prn with parameters -monitor BP and adjust treatment accordingly Hyperlipidemia -continue on lipitor Peripheral vascular disease, chronic -continue on Plavix Hypothyroidism TSH 5.950 -Continue on Synthroid 25mcg daily We will have as needed medications available for nausea, pain, vomiting, sleep, and constipation. Discharge Planning: Patient was re-evaluated by psychiatry today, discussed with Michelle Nice Act lifted and cleared from psychiatry standpoint. Case management has arrange [facility] placement, will discharge. See prior discharge summary during this hospitalization. (3) Dementia Qualifiers: Dementia type: unspecified type Dementia behavioral disturbance: with behavioral disturbance Qualified Code(s): F03.91 - Unspecified dementia with behavioral disturbance
--- NOTE | 2017-12-17 13:22 | P.PNPSY ---
Subjective Remarks: Patient was seen today for psychiatric reevaluation. The patient is calm, cooperative, pleasant. The patient reports feeling much better, denies symptoms of depression, he denies anhedonia, suicidal and homicidal ideation, he denies visual and auditory hallucinations. The patient is fully oriented x3 , goal-directed and linear. No agitation or aggressive behavior reported. Mental Status Examination Appearance: Appropriate Consciousness: Alert Orientation: x4 Motor Activity: Other (in bed) Speech: Unremarkable Language: Adequate Fund of Knowledge: Adequate Attention and Concentration: Inadequate Memory: Unremarkable Mood: Appropriate Affect: Appropriate Thought Process & Associations: Intact Thought Content: Appropriate Hallucination Type: None Delusion Type: None Suicidal Ideation: No Suicidal Plan: No Suicidal Intention: No Homicidal Ideation: No Homicidal Plan: No Homicidal Intention: No Insight: Fair Judgment: Impulsive Assessment and Plan - Assessment (1) Major depressive disorder, recurrent severe without psychotic features Code(s): F33.2 - Major depressive disorder, recurrent severe without psychotic features Status: Acute (2) Dementia Code(s): F03.90 - Unspecified dementia without behavioral disturbance Status: Acute - Plan Plan: The patient does not present any neuropsychiatric symptoms or require immediate psychiatric intervention. Fully oriented x3. Denies suicidal enemas ideation, denies visual and auditory hallucinations. Does not meet criteria for involuntary psychiatric commitment at this moment. Can be discharged to [facility]. Justification for Continued Inpatient Stay: No admission is indicated. (2) Dementia Qualifiers: Dementia type: unspecified type Dementia behavioral disturbance: with behavioral disturbance Qualified Code(s): F03.91 - Unspecified dementia with behavioral disturbance
== END 2017-12-17 17:54 ==
LOC: NEDAMB 16:15 → NEDA 16:15 → NEPHCDU 12-10 17:56 → NEDH 12-12 10:28 → NEPHCDU 12-12 10:29
PROVIDERS: ADMIT Hospitalist; ATTEND Hospitalist